=== PATIENT | male | born 1985 | race African-American/Black ===

== ENCOUNTER 2017-06-16 16:57 | Emergency (ER) | payer BC ==
[~2017-06-16] VITALS: Ht 188 cm; Wt 109.0 kg
[2017-06-16 17:04] VITALS: BP 177/84; PULSE 80; RESP 16; TEMP 99.2; O2SAT 98
[2017-06-16] MEDS ORDERED: VENTAER INH (17:11)
[2017-06-16] MEDS ORDERED: ROBA500T PO (17:22)
--- NOTE | 2017-06-16 17:23 | PD ---
HPI Chief Complaint: Back/ Neck Pain or Injury Time Seen by Provider: 17:15 Travel History International Travel<30 days: No Contact w/Intl Traveler<30days: No Traveled to known affect area: No History of Present Illness HPI 31-year-old male presents emergency department for evaluation of back spasms. Patient states that this happens to him intermittently over the course of several years. He has previous injury to his back. States that over the last 2 days the spasm has been more frequently. It is more in his mid back. He does not have anything to help with this pain. It is intermittently sharp. Denies any urinary symptoms. Denies any saddle paresthesia, loss of bowel or bladder, lower extremity weakness. No fever or chill. No other symptoms to report. PFSH Past Medical History Asthma: Yes Social History Alcohol Use: No Tobacco Use: No Substance Use: No Allergies-Medications (Allergen,Severity, Reaction): Coded Allergies: Penicillins (Verified Allergy, Intermediate, RASH, 06/16/17) Reported Meds & Prescriptions Reported Meds & Active Scripts Active Robaxin (Methocarbamol) 500 Mg Tab 500-1,000 Mg PO TID PRN Reported Ventolin Hfa 18 GM Inh (Albuterol Sulfate) 90 Mcg/Act Aer 1 Puff INH Q4H PRN Review of Systems Except as stated in HPI: all other systems reviewed are Neg Physical Exam Narrative GENERAL: Well-nourished male patient ambulatory with a nonantalgic gait, no acute distress. SKIN: Focused skin assessment warm/dry. HEAD: Atraumatic. Normocephalic. EYES: Pupils equal and round. No scleral icterus. No injection or drainage. ENT: No nasal bleeding or discharge. Mucous membranes pink and moist. NECK: Trachea midline. No JVD. CARDIOVASCULAR: Regular rate and rhythm. No murmur appreciated. RESPIRATORY: No accessory muscle use. Clear to auscultation. Breath sounds equal bilaterally. GASTROINTESTINAL: Abdomen soft, non-tender, nondistended. Hepatic and splenic margins not palpable. MUSCULOSKELETAL: No obvious deformities. No clubbing. No cyanosis. No edema. 5+ strength equal bilateral extremities. No midline spinal tenderness. NEUROLOGICAL: Awake and alert. No obvious cranial nerve deficits. Motor grossly within normal limits. Normal speech. PSYCHIATRIC: Appropriate mood and affect; insight and judgment normal. Data Data Last Documented VS Vital Signs Date Time Temp Pulse Resp B/P (MAP) Pulse Ox O2 Delivery O2 Flow Rate FiO2 06/16/17 17:04 99.2 80 16 177/84 (115) 98 Orders Orders Ed Discharge Order (06/16/17 17:20) MDM Medical Decision Making Medical Screen Exam Complete: Yes Emergency Medical Condition: Yes Medical Record Reviewed: Yes Differential Diagnosis Muscle spasm versus strain versus discogenic pain versus radiculopathy Narrative Course 31-year-old male presents emergency department for evaluation of back spasms. These have occurred many times in the past for him per his report. He does not want anything for pain here. He would like a prescription to help with the spasms outpatient. Patient is counseling care. Encouraged follow-up with primary care provider and return immediately with any acute worsening symptoms. Diagnosis Primary Impression: Back muscle spasm Referrals: Primary Care Physician Patient Instructions: General Instructions, Muscle Spasm (ED) Additional Instructions: Warm moist heat and light massage may help to alleviate symptoms Follow-up the primary care provider Avoid activity that exacerbates pain Avoid prolonged bedrest Return immediately with any acute worsening of symptoms Med/Other Pt SpecificInfo: Prescription(s) given Scripts Methocarbamol (Robaxin) 500 Mg Tab 500-1000 MG PO TID Y for MUSCLE SPASM, #20 TAB 0 Refills Prov: Azucena Winston 06/16/17 Disposition: 01 DISCHARGE HOME Condition: Stable Azucena Winston Jun 16, 2017 17:23
== END 2017-06-16 17:33 | disposition home or self-care (01) ==
LOC: PHEFT 16:57
DX: M62.830 Muscle spasm of back (principal); J45.909 Unspecified asthma, uncomplicated
CPT/HCPCS: 99283